=== PATIENT | male | born 1955 | race Caucasian/White ===

== ENCOUNTER 2017-10-04 12:55 | Outpatient (CLI) | payer BC ==
--- NOTE | 2017-10-04 14:47 | MRI ---
MRI LUMBAR SPINE WITHOUT CONTRAST: HISTORY: M54.16, lumbar radiculopathy. Low back pain with pain running down the right leg. COMPARISON: None. FINDINGS: The aortic contour is normal. No aneurysmal dilatation. No retroperitoneal adenopathy. No hydronephrosis. The background marrow signal is normal. The conus medullaris terminates at superior end plate of T12 . There appears to be a lumbosacral transitional vertebra with sacralization of L5. This will be terme d L5 for the purposes of this examination. Levels are as follows: T12-L1: circumferential degenerative disk space height loss. There is a circumferential disk bulge narrows the spinal canal to approximately 7 mm. No significant neural foraminal narrowing. L1-2: Disk space is normal. Mild facet arthropathy. No significant neural foraminal or spinal mary l narrowing. L2-3: Mild degenerative disk space height loss and circumferential disk bulge. Moderate facet arthr opathy. Mild bilateral neural foraminal narrowing. L3-4: There is a circumferential disk bulge, degenerative disk space height loss, and disk desiccati on. Moderate facet arthropathy. Mild ligamentum flavum hypertrophy. The spinal canal measures 6 mm . L4-5: There is a circumferential disk bulge and degenerative disk space height loss with a superimpo sed right subforaminal posterior disk protrusion. There is a severe right neural foraminal narrowing with abutment of the exiting and traversing nerve roots. Moderate to severe facet arthropathy. Hyp ertrophic change causes severe left-sided neural foraminal narrowing. L5-S1: Partial sacralized L5. No neural foraminal or spinal canal narrowing. IMPRESSION: 1. Multifocal moderate to severe neural foraminal and spinal canal narrowing as described above wors e at L4-5 due to superimposed disk protrusion. 2. What is felt to be a sacralized L5 which will be termed L5 for the purposes of this examination. POS: [facility]
== END 2017-10-04 12:56 | disposition home or self-care (01) ==
LOC: TBSIIMAG 12:55
PROVIDERS: ATTEND Neurological Surgery
DX: M51.16 Intervertebral disc disorders with radiculopathy, lumbar region (principal); M48.061 Spinal stenosis, lumbar region without neurogenic claudication; M99.53 Intervertebral disc stenosis of neural canal of lumbar region
CPT/HCPCS: 72148

== ENCOUNTER 2017-12-10 05:43 | Day surgery (SDC) | payer BC ==
[2017-12-10 06:27] LABS: Hemoglobin 14.5 g/dL (14.0-18.0); Mean Corpuscular HGB CONC 33.4 g/dL (32.0-36.0); Mean Corpuscular Hemoglobin 28.7 pg (27.0-31.0); Mean Corpuscular Volume 85.9 fl (80.0-94.0); Mean Platelet Volume 7.1 fL (7.4-10.4); Platelet Count 208 thou/uL (130-400); RBC Distribution Width 12.8 % (11.5-14.5); Red Blood Cell (RBC) Count 5.05 mill/uL (4.70-6.10); White Blood Cell (WBC) Count 7.6 thou/uL (4.8-10.8)
[2017-12-10] MEDS ORDERED: CEFAZOLIN/Water 2 GM/20 ML SYRINGE ONE (06:31)
[2017-12-10] MEDS ORDERED: Bacitracin Zinc Ointment 30 gm TUBE ONE (06:32)
[2017-12-10] MEDS ORDERED: Sodium Chloride 0.9% 10 ML ONE (06:32)
[2017-12-10 06:41] LABS: Anion Gap 10 mmol/L (10-20); BUN (Urea Nitrogen) 15 mg/dL (8.4-25.7); Calc. Creatinine Clearance 123 mL/min (70-130); Calcium 9.2 mg/dL (7.8-10.44); Carbon Dioxide 24 mmol/L (23-31); Chloride 111 mmol/L (98-107); Estimated GFR-MDRD Greater than 90; Glucose 107 mg/dL (80-115); Potassium 3.4 mmol/L (3.5-5.1); Sodium 142 mmol/L (136-145)
[2017-12-10] MEDS ORDERED: Famotidine/PF 20 mg/2ml Vial ONE (06:44)
[2017-12-10] MEDS ORDERED: Fentanyl 250 MCG/5 ML VIAL ONE (06:44)
--- NOTE | 2017-12-10 08:30 | OP ---
DATE OF PROCEDURE: 12/10/2017 SURGEON: Chris Zapien M.D. PAINT PREP TECHNICIAN: Lalo Parker PROCEDURE: Right L4-L5 laminectomy, facetectomy, foraminotomy, interbody arthrodesis, intravertebral biomechanical device, local morselized autograft, demineralized bone matrix, posterior lateral arthr odesis and pedicle screw instrumentation L4-L5. PROCEDURE IN DETAIL: The patient was brought to the operating room, intubated. He was rolled in pro ne position on gel-filled chest rolls. The previous incision was reopened and extended and the L4-5 region completely exposed including the prior scar from hemilaminectomy. We performed a right L4-5 t otal laminectomy, facetectomy, and foraminotomy, identified the nerve roots beneath some scar and com pletely decompressed them of facet arthropathy and disk material. The disc itself was incised and de brided for the purpose of arthrodesis and appropriately sized. The bony endplates were decorticated for the purpose of arthrodesis and an appropriately sized intravertebral biomechanical PEEK device wa s brought into the field, filled with demineralized bone matrix and local morselized autograft, and t apped in place securely at L4-5. Next, pedicle screws were placed at right L4 and right L5 using lat eral fluoroscopic guidance and positioning was confirmed with x-ray. Miguel was secured between the scr ews, connected by nuts which were final tightened. We wound was extensively irrigated, immaculate he mostasis was secured. A combination of demineralized bone matrix and local morselized autograft was laid over the left laminar and posterolateral surfaces for the purpose of arthrodesis. Vancomycin po wder was applied and the wound was then closed in anatomic layers.
[2017-12-10] MEDS ORDERED: Fentanyl 100 MCG/2 ML VIAL ONE ×2 (09:03→09:25)
[2017-12-10] MEDS ORDERED: Ketorolac Tromethamine 30 MG/ML VIAL ONE (09:35)
[2017-12-10] MEDS ORDERED: HYDROcodone/Acetaminophen 5/325 mg Tablet ONE (11:28)
[2017-12-10] MEDS ORDERED: PROPOFOL 200 MG/20 ML VIAL ONE (15:32)
[2017-12-10] MEDS ORDERED: Glycopyrrolate 0.2 MG/ML 5 ML SYRINGE ONE (15:32)
[2017-12-10] MEDS ORDERED: Lidocaine 1% PF 5 ML VIAL ONE (15:32)
[2017-12-10] MEDS ORDERED: Ondansetron HCl/PF 4 MG/2 ML Vial ONE (15:32)
--- NOTE | 2017-12-10 21:30 | EKG ---
Test Reason : PREOP Blood Pressure : / mmHG Vent. Rate : 069 BPM Atrial Rate : 069 BPM P-R Int : 152 ms QRS Dur : 104 ms QT Int : 408 ms P-R-T Axes : 073 014 054 degrees QTc Int : 437 ms Normal sinus rhythm Normal ECG When compared with ECG of 20-MAY-1997 09:30, No significant change was found Confirmed by Venkata CHAO ([id number]) on 12/10/2017 9:30:16 PM Referred By: THERON Confirmed By:Venkata CHAO
== END 2017-12-10 11:40 | disposition home or self-care (01) ==
LOC: SDC 05:43
PROVIDERS: ATTEND Neurological Surgery
PROC: 0SG00AJ Fusion of Lumbar Vertebral Joint with Interbody Fusion Device, Posterior Approach, Anterior Column, Open Approach (ICD-10-PCS; principal; 2017-12-10)
DX: M54.16 Radiculopathy, lumbar region (principal); G47.30 Sleep apnea, unspecified; Z79.899 Other long term (current) drug therapy; Z98.890 Other specified postprocedural states
CPT/HCPCS: 36415; 76001; 80048; 85027; 93005; 93010; 96374; A4216; C1713; C1768; J1885; J2001; J2405; J2704; J3010; J3370; J3490; S0028

== ENCOUNTER 2017-12-25 15:08 | Outpatient (CLI) | payer BC ==
--- NOTE | 2017-12-25 15:30 | RAD ---
TWO VIEWS OF THE LUMBOSACRAL SPINE: COMPARISON: MRI lumbar spine 10/04/17. HISTORY: Low back pain after surgery. FINDINGS: Two views lumbosacral spine show the patient to be status post posterior fusion of L5 and S1 with rig ht sided pedicle screws. No perihardware lucency is seen. There is a disk spacer in the intervening disk space. The vertebral bodies demonstrate normal alignment without subluxation. There are moder ate osteophytes throughout the lumbar spine. IMPRESSION: Postsurgical changes of the lumbar spine without evidence of complication. POS: [facility]
== END 2017-12-25 15:09 | disposition home or self-care (01) ==
LOC: TBSIIMAG 15:08
PROVIDERS: ATTEND Neurological Surgery
DX: M47.816 Spondylosis without myelopathy or radiculopathy, lumbar region (principal); Z98.890 Other specified postprocedural states
CPT/HCPCS: 72100

== ENCOUNTER 2018-02-14 13:42 | Outpatient (CLI) | payer BC ==
--- NOTE | 2018-02-14 13:54 | RAD ---
LUMBAR SPINE TWO VIEWS: History: Follow up surgery. Back pain. Comparison: 12-25-17 FINDINGS: Pedicle screws on the right at L5-S1. Alignment is maintained and unchanged from prior exam. Degenera tive changes of the lumbar spine again noted. Interbody implant at L5-S1 is unchanged in position. IMPRESSION: Stable findings when compared to 12-25-17. POS: [facility]
== END 2018-02-14 13:43 | disposition home or self-care (01) ==
LOC: TBSIIMAG 13:42
PROVIDERS: ATTEND Neurological Surgery
DX: M54.16 Radiculopathy, lumbar region (principal)
CPT/HCPCS: 72100

== ENCOUNTER 2020-02-17 07:28 | Emergency (ER) | payer BC ==
[2020-02-17 08:12] LABS: #Basophils 0.1 thou/uL (0.0-0.2); #Eosinphils 0.2 thou/uL (0.0-0.7); #Lymphocytes 2.5 thou/uL (1.20-3.40); #Monocytes 0.6 thou/uL (0.11-0.59); #Neutrophils 5.1 thou/uL (1.40-6.50); %Lymphocytes 29.4 % (21.0-51.0); %Monocytes 6.8 % (0.0-10.0); %Neutrophils 60.7 % (42.0-75.0); Hemoglobin 16.2 g/dL (14.0-18.0); Mean Corpuscular HGB CONC 34.4 g/dL (32.0-36.0); Mean Corpuscular Hemoglobin 29.7 pg (27.0-31.0); Mean Corpuscular Volume 86.4 fL (78.0-98.0); Platelet Count 192 thou/uL (130-400); RBC Distribution Width 12.2 % (11.5-14.5); Red Blood Cell (RBC) Count 5.43 mill/uL (4.70-6.10); White Blood Cell (WBC) Count 8.5 thou/uL (4.8-10.8)
[2020-02-17 08:24] LABS: Bacteria/HPF None Seen HPF (None Seen); Bilirubin Negative (Negative); Blood, Urine 1+ (Negative); Clarity Clear (Clear); Glucose, Urine (Dipstick) Greater than 1000 mg/dL (Negative); Leukocyte Negative Leu/uL (Negative); Nitrite Negative (Negative); Protein, Urine (Dipstick) Negative (Neg-Trace); RBC/HPF 21-50 HPF (0-3); Squamous Epithelial None Seen HPF (0-3); Urobilinogen Normal mg/dL (Less than 2); WBC/HPF 0-3 HPF (0-3)
[2020-02-17 08:39] LABS: ALT (SGPT) 23 U/L (8-55); AST (SGOT) 20 U/L (5-34); Albumin 4.4 g/dL (3.4-4.8); Alkaline Phosphatase 91 U/L (40-110); Anion Gap 14 mmol/L (10-20); BUN (Urea Nitrogen) 12 mg/dL (8.4-25.7); Bilirubin, Total 0.7 mg/dL (0.2-1.2); Calc. Creatinine Clearance 0 mL/min (70-130); Calcium 9.5 mg/dL (7.8-10.44); Carbon Dioxide 25 mmol/L (23-31); Chloride 102 mmol/L (98-107); Estimated GFR-MDRD 75; Glucose 214 mg/dL (80-115); Lipase 18 U/L (8-78); Potassium 3.3 mmol/L (3.5-5.1); Protein, Total 7.4 g/dL (5.8-8.1); Sodium 138 mmol/L (136-145)
[2020-02-17] MEDS ORDERED: Iopamidol 370 76% 100 ML VIAL ONE (08:48)
[2020-02-17] MEDS ORDERED: Ondansetron PF 4 MG/2 ML Vial ONE (09:16)
[2020-02-17] MEDS ORDERED: Morphine 4 MG/ML VIAL ONE (09:16)
--- NOTE | 2020-02-17 10:24 | CT ---
CT ABDOMEN AND PELVIS WITH IV CONTRAST: Date: 02/17/2020 INDICATION: History of abdominal pain. COMPARISON: None. FINDINGS: There is wall thickening and pericolonic inflammatory stranding with colonic diverticulosis affecting the descending colon. No drainable fluid collection is evident. There is postprocedural change of a right hemicolectomy. There is fatty infiltration of the liver. There is a small hiatal hernia. Spleen, pancreas, adrenal g lands, and kidneys appear within normal limits. There is mild right hydronephrosis. There are mild vascular calcifications involving the abdominal aorta. There is a 4.0 mm stone at the level of the right UVJ. There is very slight prominence of the right r enal collecting system. Prostate is enlarged. The rectum and perirectal soft tissues are unremarkable appearing. There is scattered degenerative and osteoarthritic change. There is postsurgical change consistent wi th a posterior lumbar interbody fusion at L5-S1. IMPRESSION: 1. Wall thickening with pericolonic inflammatory stranding involving the descending colon suspicious for noncomplicated colonic diverticulitis. 2. 4.0 mm stone at the level of the right UVJ with mild right-sided hydronephrosis and hydroureter. 3. Fatty liver. 4. Small hiatal hernia. 5. Prostate enlargement. POS: [facility]
== END 2020-02-17 10:00 | disposition home or self-care (01) ==
LOC: ERS 07:28
DX: K57.32 Diverticulitis of large intestine without perforation or abscess without bleeding (principal); N13.2 Hydronephrosis with renal and ureteral calculous obstruction; E11.9 Type 2 diabetes mellitus without complications; Z87.891 Personal history of nicotine dependence
CPT/HCPCS: 74177; 80053; 81003; 81015; 83690; 85025; 96374; 96375; J2270; J2405; Q9967

== ENCOUNTER 2020-07-21 06:14 | Outpatient (CLI) | payer BC, OTHER ==
[2020-07-21 10:41] LABS: Hemoglobin 14.9 g/dL (14.0-18.0); Mean Corpuscular HGB CONC 32.5 G/DL (32.0-36.0); Mean Corpuscular Hemoglobin 27.6 PG (27.0-33.0); Mean Platelet Volume 10.5 fl (7.4-10.4); Platelet Count 207 10x3/uL (130-400); RBC Distribution Width 13.6 % (11.5-14.5); Red Blood Cell (RBC) Count 5.39 10x6/uL (4.40-5.80); White Blood Cell (WBC) Count 6.2 10x3/uL (4.5-11.0)
[2020-07-21 11:30] LABS: Anion Gap 15 mmol/L (10-20); BUN (Urea Nitrogen) 13 mg/dL (8.4-25.7); Calc. Creatinine Clearance 0 mL/min (70-130); Carbon Dioxide 22 mmol/L (23-31); Chloride 107 mmol/L (98-107); Estimated GFR-MDRD Greater than 90; Glucose 122 mg/dL (80-115); Potassium 4.4 mmol/L (3.5-5.1); Sodium 140 mmol/L (136-145)
--- NOTE | 2020-07-21 21:10 | EKG ---
Test Reason : PREP Blood Pressure : / mmHG Vent. Rate : 072 BPM Atrial Rate : 072 BPM P-R Int : 154 ms QRS Dur : 090 ms QT Int : 394 ms P-R-T Axes : 080 059 071 degrees QTc Int : 431 ms Normal sinus rhythm Normal ECG Confirmed by Venkata CHAO ([id number]) on 07/21/2020 9:10:07 PM Referred By: THERON Confirmed By:Venkata CHAO
[2020-07-22 14:42] LABS: SARS-CoV-2 MS2 Positive; SARS-CoV-2 N Gene Negative; SARS-CoV-2 S Gene Negative; SARS-CoV-2 by NAA Not Detected (NotDetected); SARS-CoV-2 orf1ab Negative
== END 2020-07-21 06:15 | disposition home or self-care (01) ==
LOC: LABBT 06:14
PROVIDERS: ATTEND Neurological Surgery
DX: Z01.818 Encounter for other preprocedural examination (principal); M54.12 Radiculopathy, cervical region; Z20.828 Contact with and (suspected) exposure to other viral communicable diseases
CPT/HCPCS: 80048; 85027; 87635; 93005; 93010; U0003

== ENCOUNTER 2020-07-26 06:23 | Observation (INO) | payer BC ==
[2020-07-26] MEDS ORDERED: Fentanyl 100 MCG/2 ML VIAL ONE ×2 (06:57→10:46)
--- NOTE | 2020-07-26 10:01 | OP ---
DATE OF PROCEDURE: 07/26/2020 ROAD EQUIPMENT OPERATOR: Leslie Barajas PA-C. PROCEDURE PERFORMED: Anterior cervical diskectomy at C5-C6 and C6-C7, interbody arthrodesis, intervertebral biomechanical device, local morselized autograft, demineralized bone matrix, anterior titanium instrumentation at C5-C6 and C6-C7. DESCRIPTION OF PROCEDURE: The patient was brought to the operating room and intubated. He was positioned supine with head in modest extension on gel-filled donut. Incision was made in the right precervical area and dissected medial to the sternocleidomastoid muscle, identified the anterior cervical spinal, and the level was confirmed by x-ray. We debrided the anterior osteophytes and placed distraction from C5-C7. Using operative microscope and microdissection techniques, we completely removed the intervertebral disk decompressing the neural elements from foramen to foramen. After complete decompression had been secured, the bony endplates were decorticated for the purpose of arthrodesis and appropriate-sized intervertebral biomechanical PEEK device was brought into the field. It was filled with demineralized bone matrix and local morselized autograft, and tapped into place securely at C5-C6 and C6-C7. Next, an anterior plate was brought into the field and secured to C5, C6, and C7 using two 14-mm screws at each level. It should be noted that the plate was distinct and separate from the intervertebral device and not integral to them. The wound was then extensively irrigated and hemostasis was secured. The wound was then closed in anatomic layers over a drain. Job ID: [id number]
[2020-07-26] MEDS ORDERED: Tamsulosin HCl 0.4 MG CAP ONE (10:39)
[2020-07-26] MEDS ORDERED: diphenhydrAMINE 50 MG/ML VIAL ONE (11:37)
[2020-07-26] MEDS ORDERED: PROPOFOL 200 MG/20 ML VIAL ONE (11:37)
[2020-07-26] MEDS ORDERED: Ondansetron PF 4 MG/2 ML Vial ONE (11:37)
[2020-07-26] MEDS ORDERED: Ketorolac Tromethamine 30 MG/ML VIAL ONE (11:37)
[2020-07-26] MEDS ORDERED: Glycopyrrolate 0.2 MG/ML 5 ML SYRINGE ONE (11:37)
[2020-07-26] MEDS ORDERED: PHENYLEPHRINE-NS 100 MCG/ML 10 ML SYRINGE ONE (11:37)
[2020-07-26] MEDS ORDERED: Rocuronium Bromide 10 MG/ML (10ML VIAL) ONE (11:37)
[2020-07-26] MEDS ORDERED: Dexamethasone 20 MG/5 ML VIAL ONE (11:37)
[2020-07-26] MEDS ORDERED: Acetaminophen/Codeine 30-300mg Tablet PO PRN (14:00)
[2020-07-26] MEDS ORDERED: Morphine 2 MG/ML VIAL SLOW IVP PRN (14:00)
[2020-07-26] MEDS ORDERED: Promethazine HCl 12.5 MG SUPP PR PRN (14:00)
[2020-07-26] MEDS ORDERED: Promethazine 25 MG TAB PO PRN (14:00)
[2020-07-26] MEDS ORDERED: tiZANidine HCl 4 MG TAB PO PRN (14:00)
[2020-07-26] MEDS ORDERED: Morphine 4 MG/ML VIAL SLOW IVP PRN (14:00)
[2020-07-26] MEDS ORDERED: CEFAZOLIN 2 GM in Premix Bag 1 BAG IVPB SCH (14:00)
[2020-07-26] MEDS ORDERED: Promethazine HCl 25 MG/ML VIAL IM PRN (14:00)
[2020-07-26] MEDS ORDERED: Milk Of Magnesia 30 ML UDCUP PO PRN (14:00)
[2020-07-26] MEDS ORDERED: Mag-Al 1200 mg/1200 mg/30 ML UDCUP PO PRN (14:00)
[2020-07-26] MEDS ORDERED: diphenhydrAMINE 25 MG CAP PO PRN (14:00)
[2020-07-26] MEDS ORDERED: traMADol HCl 50 MG TAB PO PRN ×2 (14:00)
[2020-07-26] MEDS ORDERED: diphenhydrAMINE 50 MG/ML VIAL IVP PRN (14:00)
[2020-07-26] MEDS ORDERED: Ondansetron PF 4 MG/2 ML Vial IVP PRN (14:00)
[2020-07-26] MEDS: Sodium Chloride 0.9% 1,000 ML IV SCH (14:07)
[2020-07-26] MEDS: CEFAZOLIN 2 GM in Premix Bag 1 BAG IVPB SCH (17:15)
[2020-07-26] MEDS: Acetaminophen/Codeine 30-300mg Tablet PO PRN (17:21)
[2020-07-27] MEDS: CEFAZOLIN 2 GM in Premix Bag 1 BAG IVPB SCH ×2 (00:35→08:53)
[2020-07-27] MEDS: Sodium Chloride 0.9% 1,000 ML IV SCH (03:16)
[2020-07-27 03:33] VITALS: TEMP 97.8
[2020-07-27] MEDS: Acetaminophen/Codeine 30-300mg Tablet PO PRN (03:46)
[2020-07-27] MEDS ORDERED: Tamsulosin HCl 0.4 MG CAP PO SCH (06:00)
--- NOTE | 2020-07-27 07:24 | DIS ---
DATE OF ADMISSION: 07/26/2020 DATE OF DISCHARGE: 07/27/2020 PROCEDURE: C5-C7 ACDF. DISCHARGE SUMMARY: The patient is a 65-year-old male, who was found to have significant degenerative disk disease and right-sided foraminal stenosis, who underwent C5-C7 ACDF on 07/26/2020. Following the surgery, he was transitioned to the Med/Surg floor, where his pain was well controlled with p.o. medications, he is tolerating a regular diet, he was voiding appropriately. He did have CHARLENE drain placed intraoperatively with only 20 mL out the first night. The patient doing well. We will dismiss to home. I have discussed home care precautions and provided him with scripts for Tylenol No. 3 and Zanaflex. [facility] Reva checked prior to discharge. Job ID: [id number]
[2020-07-27 07:34] VITALS: BP 120/68
[2020-07-27] MEDS ORDERED: FLU VACC QS2020-21(6MOS UP)/PF 60 MCG/0.5 ML SYRINGE IM ONE (09:00)
== END 2020-07-27 10:40 | disposition home or self-care (01) ==
LOC: SDC 06:23 → SURG A 10:20
PROVIDERS: ADMIT Neurological Surgery; ATTEND Neurological Surgery
PROC: 0RG20A0 Fusion of 2 or more Cervical Vertebral Joints with Interbody Fusion Device, Anterior Approach, Anterior Column, Open Approach (ICD-10-PCS; principal; 2020-07-27)
PROC: 0RG2070 Fusion of 2 or more Cervical Vertebral Joints with Autologous Tissue Substitute, Anterior Approach, Anterior Column, Open Approach (ICD-10-PCS; 2020-07-27)
PROC: 0RT30ZZ Resection of Cervical Vertebral Disc, Open Approach (ICD-10-PCS; 2020-07-27)
DX: M54.12 Radiculopathy, cervical region (principal); M48.02 Spinal stenosis, cervical region; K21.9 Gastro-esophageal reflux disease without esophagitis; Z79.899 Other long term (current) drug therapy
CPT/HCPCS: 76000; 90471; 90662; 96365; C1713; C1776; G0008; G0378; J0690; J1100; J1200; J1885; J2405; J2704; J3010

== ENCOUNTER 2020-08-10 12:31 | Outpatient (CLI) | payer BC ==
[~2020-08-10 12:31] MED LIST: HYDROmorphone 2 MG/ML VIAL SLOW IVP PRN; Morphine Sulfate 2 MG/ML SYRINGE SLOW IVP PRN; Ondansetron HCl/PF 4 MG/2 ML Vial IVP PRN; PACU-Morphine 4MG/ML VIAL SLOW IVP PRN
--- NOTE | 2020-08-10 13:01 | RAD ---
CERVICAL SPINE: Date: 08/10/2020 INDICATION: Cervical radiculopathy. FINDINGS: Postoperative changes are noted with anterior plate and screws transfixing C5, C6, and C7 with interb vita implants. Posterior alignment is preserved. Mild degenerative changes at the other levels, althou gh disc spaces are maintained. IMPRESSION: Degenerative and postoperative changes of cervical spine noted as described. POS: [facility]
== END 2020-08-10 12:32 | disposition home or self-care (01) ==
LOC: TBSIIMAG 12:31
PROVIDERS: ATTEND Neurological Surgery
DX: M47.22 Other spondylosis with radiculopathy, cervical region (principal); Z98.890 Other specified postprocedural states
CPT/HCPCS: 72040

== ENCOUNTER 2022-05-07 11:22 | Emergency (ER) | payer BC, MEDICARE ==
[2022-05-07] MEDS ORDERED: predniSONE 20 MG TAB ONE ×2 (13:29→13:31)
== END 2022-05-07 13:34 | disposition home or self-care (01) ==
LOC: ERS 11:22
DX: M54.50 Low back pain, unspecified (principal); E11.9 Type 2 diabetes mellitus without complications; F17.220 Nicotine dependence, chewing tobacco, uncomplicated; Z79.84 Long term (current) use of oral hypoglycemic drugs
CPT/HCPCS: 99283; J7512

== ENCOUNTER 2022-06-01 08:59 | Outpatient (CLI) | payer MEDICARE | END 2022-06-01 09:00 | disposition home or self-care (01) | LOC: TBSIIMAG 08:59 | PROVIDERS: ATTEND Physician Assistant | DX: M47.26 Other spondylosis with radiculopathy, lumbar region (principal); Z98.890 Other specified postprocedural states | CPT/HCPCS: 72148 ==

== ENCOUNTER 2022-09-20 13:25 | Outpatient (CLI) | payer MEDICARE ==
[2022-09-20 15:06] LABS: Hemoglobin 16.4 g/dL (13.5-17.5); Mean Corpuscular HGB CONC 34.1 g/dL (32.0-36.0); Mean Corpuscular Hemoglobin 28.6 pg (27.0-33.0); Mean Corpuscular Volume 83.9 fl (81.2-95.1); Mean Platelet Volume 10.3 fl (7.4-10.4); Platelet Count 196 10x3/uL (150-450); RBC Distribution Width 13.2 % (11.5-14.5); Red Blood Cell (RBC) Count 5.73 10x6/uL (4.32-5.72); White Blood Cell (WBC) Count 7.7 10x3/uL (3.5-10.5)
[2022-09-20 15:28] LABS: Anion Gap 16 mmol/L (10-20); BUN (Urea Nitrogen) 9 mg/dL (8.4-25.7); Calc. Creatinine Clearance 0 mL/min (70-130); Calcium 9.1 mg/dL (7.8-10.44); Carbon Dioxide 21 mmol/L (23-31); Chloride 106 mmol/L (98-107); Estimated GFR 98; Glucose 115 mg/dL (80-115); Potassium 4.3 mmol/L (3.5-5.1); Sodium 139 mmol/L (136-145)
== END 2022-09-20 13:26 | disposition home or self-care (01) ==
LOC: LABBT 13:25
PROVIDERS: ATTEND Neurological Surgery
DX: Z01.818 Encounter for other preprocedural examination (principal); M48.062 Spinal stenosis, lumbar region with neurogenic claudication
CPT/HCPCS: 80048; 85027; 93005; 93010

== ENCOUNTER 2022-09-20 14:30 | Inpatient (IN) | payer MEDICARE ==
[2022-09-25] MEDS ORDERED: Sodium Chloride 0.9% 100 ML ONE (08:36)
[2022-09-25] MEDS ORDERED: CEFAZOLIN 2 GM VIAL ONE (08:36)
[2022-09-25] MEDS ORDERED: Lidocaine 1% MPF 2 ML VIAL ONE (08:36)
[2022-09-25 09:07] LABS: SARS-CoV-2 NAA Rapid Test Not Detected (NotDetected)
[2022-09-25] MEDS ORDERED: Vancomycin 1 GM VIAL ONE (10:15)
[2022-09-25] MEDS ORDERED: Fentanyl 250 MCG/5 ML VIAL ONE (11:07)
[2022-09-25] MEDS ORDERED: PROPOFOL 200 MG/20 ML VIAL ONE (11:14)
[2022-09-25] MEDS ORDERED: Lidocaine 1% PF 5 ML VIAL ONE (11:14)
[2022-09-25] MEDS ORDERED: Glycopyrrolate 0.2 MG/ML 5 ML SYRINGE ONE (11:14)
[2022-09-25] MEDS ORDERED: Ondansetron PF 4 MG/2 ML Vial ONE (11:14)
[2022-09-25] MEDS ORDERED: NEOSTIGMINE 3 MG/3 ML SYR 3 MG/3 ML SYRINGE ONE (11:14)
[2022-09-25] MEDS ORDERED: Rocuronium Bromide 10 MG/ML (10ML VIAL) ONE (11:14)
[2022-09-25] MEDS ORDERED: Dexamethasone 20 MG/5 ML VIAL ONE (11:14)
[2022-09-25] MEDS ORDERED: Ketorolac Tromethamine 30 MG/ML VIAL ONE (11:14)
[2022-09-25] MEDS ORDERED: Ondansetron HCl/PF 4 MG/2 ML Vial IVP PRN (12:19)
[2022-09-25] MEDS ORDERED: HYDROmorphone 2 MG/ML VIAL SLOW IVP PRN (12:19)
[2022-09-25] MEDS ORDERED: Morphine Sulfate 2 MG/ML SYRINGE SLOW IVP PRN (12:19)
[2022-09-25] MEDS ORDERED: Promethazine HCl 25 MG/ML VIAL IM PRN (12:19)
[2022-09-25] MEDS ORDERED: Promethazine HCl 25 MG/ML VIAL IVPB PRN (12:19)
[2022-09-25] MEDS ORDERED: PACU-Morphine 4MG/ML VIAL SLOW IVP PRN (12:19)
[2022-09-25] MEDS ORDERED: Cyclobenzaprine 10 MG TAB PO PRN (12:38)
[2022-09-25] MEDS ORDERED: Milk Of Magnesia 30 ML UDCUP PO PRN (12:38)
[2022-09-25] MEDS ORDERED: Morphine 2 MG/ML VIAL SLOW IVP PRN (12:38)
[2022-09-25] MEDS ORDERED: HYDROcodone/Acetaminophen 7.5/325 mg Tablet PO PRN ×2 (12:38)
[2022-09-25] MEDS ORDERED: Promethazine 25 MG TAB PO PRN (12:38)
[2022-09-25] MEDS ORDERED: diphenhydrAMINE 25 MG CAP PO PRN (12:38)
[2022-09-25] MEDS ORDERED: Acetaminophen 325 MG TAB PO PRN (12:38)
[2022-09-25] MEDS ORDERED: Mag-Al 1200 mg/1200 mg/30 ML UDCUP PO PRN (12:38)
[2022-09-25] MEDS ORDERED: traMADol HCl 50 MG TAB PO PRN (12:38)
[2022-09-25] MEDS ORDERED: Morphine 4 MG/ML VIAL SLOW IVP PRN (13:00)
[2022-09-25] MEDS ORDERED: Fentanyl 100 MCG/2 ML VIAL ONE (13:33)
[2022-09-25] MEDS: Sodium Chloride 0.9% 1,000 ML IV SCH (15:15)
[2022-09-25 17:10] VITALS: BMI 31.3
[2022-09-25] MEDS: metFORMIN 500 MG TAB PO SCH (17:58)
[2022-09-25] MEDS: CEFAZOLIN 2 GM in Sodium Chloride 0.9% 100 ML IVPB SCH (18:04)
[2022-09-26] MEDS: CEFAZOLIN 2 GM in Sodium Chloride 0.9% 100 ML IVPB SCH (01:26)
[2022-09-26] MEDS: Sodium Chloride 0.9% 1,000 ML IV SCH (04:21)
[2022-09-26] MEDS: metFORMIN 500 MG TAB PO SCH (08:45)
[2022-09-26] MEDS ORDERED: FLU VACC QS2022-23(65YR UP)/PF 240 MCG/0.7 ML SYRINGE IM ONE (09:00)
[2022-09-26 13:07] VITALS: BP 101/60; TEMP 97.8
== END 2022-09-26 13:23 | disposition home or self-care (01) | DRG 460 ==
LOC: SURG A 09-25 07:47 → MSONC 09-25 17:02
PROVIDERS: ADMIT Neurological Surgery; ATTEND Neurological Surgery
PROC: 0SG1071 Fusion of 2 or more Lumbar Vertebral Joints with Autologous Tissue Substitute, Posterior Approach, Posterior Column, Open Approach (ICD-10-PCS; principal; 2022-09-25)
PROC: 01NB0ZZ Release Lumbar Nerve, Open Approach (ICD-10-PCS; 2022-09-25)
PROC: 0QP004Z Removal of Internal Fixation Device from Lumbar Vertebra, Open Approach (ICD-10-PCS; 2022-09-25)
DX: M48.062 Spinal stenosis, lumbar region with neurogenic claudication (principal); M48.061 Spinal stenosis, lumbar region without neurogenic claudication; E11.9 Type 2 diabetes mellitus without complications; K21.9 Gastro-esophageal reflux disease without esophagitis; G47.33 Obstructive sleep apnea (adult) (pediatric); Z79.84 Long term (current) use of oral hypoglycemic drugs; Z79.899 Other long term (current) drug therapy
CPT/HCPCS: C1713; C1768; C1776; J1100; J1885; J2405; J2704; J3010; J3370; J3490; J7050; U0002

== ENCOUNTER 2022-10-11 12:55 | Outpatient (CLI) | payer MEDICARE | END 2022-10-11 12:56 | disposition home or self-care (01) | LOC: TBSIIMAG 12:55 | PROVIDERS: ATTEND Neurological Surgery | DX: M48.062 Spinal stenosis, lumbar region with neurogenic claudication (principal); M47.816 Spondylosis without myelopathy or radiculopathy, lumbar region; Z98.890 Other specified postprocedural states | CPT/HCPCS: 72100 ==

== ENCOUNTER 2022-11-23 15:14 | Outpatient (CLI) | payer MEDICARE | END 2022-11-23 15:15 | disposition home or self-care (01) | LOC: TBSIIMAG 15:14 | PROVIDERS: ATTEND Neurological Surgery | DX: M48.062 Spinal stenosis, lumbar region with neurogenic claudication (principal); M54.50 Low back pain, unspecified; M47.816 Spondylosis without myelopathy or radiculopathy, lumbar region; Z98.1 Arthrodesis status | CPT/HCPCS: 72100 ==